=== PATIENT | female | born 1990 | race Caucasian/White ===

== ENCOUNTER 2017-11-19 06:39 | Emergency (ER) | payer OTHER ==
[~2017-11-19] VITALS: Ht 147.3 cm; Wt 60.0 kg
[2017-11-19 08:52] VITALS: BP 112/69
== END 2017-11-19 08:53 | disposition home or self-care (01) ==
LOC: EMS 06:40
DX: N64.59 Other signs and symptoms in breast (principal)
CPT/HCPCS: 99281